=== PATIENT | male | born 1980 | race Hispanic/Latino ===

== ENCOUNTER 2017-08-09 16:49 | Emergency (ER) | payer MEDICAID, OTHER ==
[2017-08-09 16:49] VITALS: BMI 26.2
[2017-08-09 17:53] VITALS: RESP 18; TEMP 98.2
--- NOTE | 2017-08-09 18:06 | ED PDOC ---
Arrival/HPI - General Chief Complaint: Lower Extremity Problem/Injury Time Seen by Provider: 08/09/17 17:45 Historian: Patient - History of Present Illness Narrative History of Present Illness (Text): 08/09/17 17:53 36-year-old male presents today with chronic knee pain. Patient states he injured his knee in 2005 and has had reconstructive surgery on the knee. Patient states about a month ago he had fallen and injured the knee. Patient states he's been dealing with on and off knee pain for many years now. Patient states he has had chronic decreased sensation along the anterior aspect of the right lower leg since his original injury. pt states he has been taking motrin for pain at home. pt states he hasnt followed up with the orthopedist in years. pt states he stopped taking roxycodone in March 2017. pt denies fever/ chills. pt c/o continued pain and swelling to the knee. pt c/o pain with ambulation. Time/Duration: Other (1 month) Quality: Aching Severity Level: 8 Past Medical History - Provider Review Nursing Documentation Reviewed: Yes - Travel History Have you recently traveled outside [place] w/in the past 3 mons?: No - Tetanus Immunization Tetanus Immunization: Unknown - Cardiac Hx Cardiac Disorders: No - Pulmonary Hx Respiratory Disorders: No - Neurological Hx Migraine: Yes (head injury as a child) - HEENT Hx HEENT Disorder: No - Renal Hx Renal Disorder: No - Endocrine/Metabolic Hx Endocrine Disorders: No - Hematological/Oncological Hx Blood Disorders: No - Integumentary Hx Dermatological Disorder: No - Musculoskeletal/Rheumatological Hx Fractures: Yes (right orbital, mandibal, nose) - Gastrointestinal Hx Gastrointestinal Disorders: No - Genitourinary/Gynecological Hx Genitourinary Disorders: No - Psychiatric Hx Depression: No Hx Substance Use: No - Surgical History Hx Orthopedic Surgery: Yes (b/l knees) - Suicidal Assessment Feels Threatened In Home Enviroment: No Family/Social History - Physician Review Nursing Documentation Reviewed: Yes Family/Social History: Unknown Family HX Smoking Status: Light Smoker < 10 Cigarettes Daily Hx Alcohol Use: No Hx Substance Use: No Hx Substance Use Treatment: No Allergies/Home Meds Allergies/Adverse Reactions: Allergies No Known Allergies Allergy (Verified 09/17/15 16:23) per patient Review of Systems - Review of Systems Constitutional: absent: Fatigue, Fevers Respiratory: absent: SOB, Cough Cardiovascular: absent: Chest Pain Gastrointestinal: absent: Abdominal Pain, Nausea, Vomiting Musculoskeletal: Arthralgias. absent: Back Pain, Neck Pain Skin: absent: Rash, Pruritis Neurological: absent: Headache, Dizziness Psychiatric: absent: Anxiety, Depression Physical Exam Vital Signs Reviewed: Yes Vital Signs Temp Pulse Resp BP Pulse Ox 08/09/17 19:25 86 18 132/74 100 08/09/17 17:53 98.2 F 84 18 135/70 99 Temperature: Afebrile Blood Pressure: Normal Pulse: Regular Respiratory Rate: Normal Appearance: Positive for: Well-Appearing, Non-Toxic, Comfortable Pain Distress: None Mental Status: Positive for: Alert and Oriented X 3 - Systems Exam Head: Present: Atraumatic Mouth: Present: Moist Mucous Membranes Neck: Present: Normal Range of Motion Respiratory/Chest: Present: Clear to Auscultation, Good Air Exchange. No: Respiratory Distress, Accessory Muscle Use Cardiovascular: Present: Regular Rate and Rhythm, Normal S1, S2. No: Murmurs Upper Extremity: Present: Normal Inspection Lower Extremity: Present: NORMAL PULSES, Normal ROM, Tenderness (right knee; + ttp over anterior aspect of knee; full rom of knee with patient; + minimal swelling without drainable effusion, no erythema, no ecchymosis; no calf tenderness. distal pulses intact. decreased sensation along anterior aspect of lower leg. ), Swelling, Capillary Refill < 2 s. No: CALF TENDERNESS, Neurovascularly Intact Neurological: Present: GCS=15 Skin: Present: Warm, Dry, Normal Color. No: Rashes Psychiatric: Present: Alert, Oriented x 3 Medical Decision Making ED Course and Treatment: 08/09/17 18:15 Patient nontoxic well-appearing in no distress with stable vital signs. pt with chronic right knee pain x years. worse over the past month. stopped taking roxycodone. X-rays of the right knee; no acute fracture. toradol IM Patient placed in knee immobilizer. pt refused Crutches given for ambulation. states he has them at home. I discussed all results with patient advised to followup with the orthopedist for the next 2 days. Return if symptoms worsen persist or new symptoms develop i advised the patient that although the xrays show no fracture; there is still a possibility for ligamentous or tendon injury the patient must see the orthopedist for further evaluation. Patient verbalizes understanding of discharge instructions and need for immediate followup. all aspects of this case were discussed the attending of record. Impression: knee pain Motrin every 6 hours as needed for pain Rest, ice, compression, elevation Use crutches for ambulation Followup with the orthopedist within the next 2 days Followup with primary care physician within the next 2 days Return if symptoms worsen persist or if new symptoms develop - RAD Interpretation Radiology Orders: 08/09/17 17:45 KNEE W PATELLA RIGHT 3 VIEW [RAD] Stat - Medication Orders Current Medication Orders: Discontinued Medications Ketorolac Tromethamine (Toradol) 60 mg IM STAT STA Stop: 08/09/17 17:51 Last Admin: 08/09/17 18:09 Dose: 60 mg MAR Pain Assessment Document 08/09/17 18:09 RD (Rec: 08/09/17 18:09 RD [id number]) Pain Reassessment Is this a pain reassessment? No Sleep Is patient sleeping during reassessment? No Presence of Pain Presence of Pain Yes Pain Scale Used Pain Scale Used Numeric Location Left, Right or Bilateral Right Pain Location Body Site Knee Description Description Intermittent Intensity of Pain at present 6 Pain Behavior Guarding Irritability Aggravating Factors ADL's Alleviating Factors/Management Medication Techniques Alleviating Factors Medication IM Administration Charges Document 08/09/17 18:09 RD (Rec: 08/09/17 18:09 RD [id number]) Injection Site MAR Injection Site Right Vastus Lateralis Charges for Administration # of IM Administrations 1 Disposition/Present on Arrival - Present on Arrival Any Indicators Present on Arrival: No History of DVT/PE: No History of Uncontrolled Diabetes: No Urinary Catheter: No History of Decub. Ulcer: No History Surgical Site Infection Following: None - Disposition Have Diagnosis and Disposition been Completed?: Yes Diagnosis: Knee pain Disposition: HOME/ ROUTINE Disposition Time: 18:17 Patient Plan: Discharge Patient Problems: Current Active Problems Problem Status Onset Knee pain Acute Condition: GOOD Discharge Instructions (ExitCare): Chronic Knee Pain (DC) Additional Instructions: Motrin every 6 hours as needed for pain Rest, ice, compression, elevation Use crutches for ambulation Followup with the orthopedist within the next 2 days Followup with primary care physician within the next 2 days Return if symptoms worsen persist or if new symptoms develop Prescriptions: Ibuprofen [Motrin] 600 mg PO Q6H PRN #20 tab PRN Reason: pain/fever reduction Referrals: Javi Freeman JD, MD [Staff Provider] - Follow up with primary Kashif Clancy MD [Staff Provider] - Follow up with primary [facility] [place] [Outside] - Follow up with primary [facility] [place] - Follow up with primary Forms: [employer] (Thai), WORK NOTE
[2017-08-09 19:25] VITALS: BP 132/74; PULSE 86; O2SAT 100
--- NOTE | 2017-08-09 20:28 | RAD ---
EXAM: XR Right Knee, 3 views EXAM DATE/TIME: 08/09/2017 5:45 PM CLINICAL HISTORY: The patient age is 36 years old and is male; Pain; Knee; Right; Prior surgery; Additional info: Knee pain Facility exam id and description: Rad kneerpat knee w patella right 3 view TECHNIQUE: Three views of the right knee. COMPARISON: CR - FOOT RIGHT 3 VIEWS ROUTINE 2015-03-02 19:20 FINDINGS: Bones/joints: There is a linear mineralized focus within the lateral compartment of the knee, suggestive of calcification or ossific loose body. A fracture fragment cannot be excluded. A tibial tunnel is identified, consistent with postoperative change. Osteopenia. Minimal degenerative spurring is visualized in the medial compartment of the knee. There is minimal spurring of the patella. The remaining bones of the right knee are otherwise intact. No dislocation. Soft tissues: There is a moderate patellofemoral joint effusion. Mild soft tissue swelling is visualized anteriorly. IMPRESSION: 1. There is a linear mineralized focus within the lateral compartment of the knee, suggestive of calcification or ossific loose body. A fracture fragment cannot be excluded. 2. There is a moderate patellofemoral joint effusion. Mild soft tissue swelling is visualized anteriorly. 3. Postoperative changes are noted above.
== END 2017-08-09 20:00 | disposition home or self-care (01) ==
LOC: ED 16:49
DX: M25.561 Pain in right knee (principal); F17.210 Nicotine dependence, cigarettes, uncomplicated
CPT/HCPCS: 29530; 73562; 96372; 99284; J1885

== ENCOUNTER 2017-12-08 21:53 | Emergency (ER) | payer MEDICAID ==
[2017-12-08 21:58] VITALS: BMI 24.3
[2017-12-08 22:06] VITALS: RESP 18; TEMP 98.5; O2SAT 100
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
[2017-12-08] MEDS ORDERED: Lidocaine 1% w Epi 1:100,000 Inj IJ STA (22:19)
[2017-12-09 00:57] VITALS: BP 125/82; PULSE 76
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
== END 2017-12-08 23:55 | disposition home or self-care (01) ==
LOC: ED 21:53
DX: S02.2XXA Fracture of nasal bones, initial encounter for closed fracture (principal); S01.412A Laceration without foreign body of left cheek and temporomandibular area, initial encounter; S02.402A Zygomatic fracture, unspecified side, initial encounter for closed fracture; Y04.0XXA Assault by unarmed brawl or fight, initial encounter; F17.210 Nicotine dependence, cigarettes, uncomplicated